=== PATIENT | female | born 1960 | race Caucasian/White ===

== ENCOUNTER 2023-04-24 11:22 | Emergency (ER) | payer MEDICARE, SELFPAY ==
[2023-04-24 11:35] VITALS: BP 147/84; PULSE 87; RESP 20; O2SAT 97; BMI 32.8
--- NOTE | 2023-04-24 11:41 | XRR_ITS ---
PROCEDURE INFORMATION: Exam: XR Lumbosacral Spine Exam date and time: 04/24/2023 12:21 PM Age: 62 years old Clinical indication: Low back pain; Additional info: Upper low back pain TECHNIQUE: Imaging protocol: Radiologic exam of the lumbosacral spine. Views: 2 or 3 views. COMPARISON: No relevant prior studies available. FINDINGS: Bones/joints: Lower thoracic/upper lumbar levoscoliosis measured from T11 through L4 of 12 degrees. There are degenerative changes throughout the visualized spine including marginal osteophyte formations, endplate degenerative changes, and facet arthropathy. Multilevel disc space narrowing. Soft tissues: Unremarkable. Gastrointestinal tract: Colonic constipation is present. XR/XR lumbar spine 2-3V* [id number] IMPRESSION: 1. Lower thoracic/upper lumbar levoscoliosis of 12 degrees. 2. There are degenerative changes as described above. No evidence for acute fracture. 3. Colonic constipation is present.
--- NOTE | 2023-04-24 11:41 | XRR_ITS ---
PROCEDURE INFORMATION: Exam: XR Thoracic Spine Exam date and time: 04/24/2023 12:21 PM Age: 62 years old Clinical indication: Pain in thoracic spine; Additional info: Lower thoracic back pain TECHNIQUE: Imaging protocol: Radiologic exam of the thoracic spine. Views: 3 views. COMPARISON: No relevant prior studies available. FINDINGS: Bones/joints: 11 degree thoracic dextroscoliosis. Multilevel small thoracic marginal osteophyte formations. Multilevel thoracic endplate degenerative changes and facet arthropathy. Soft tissues: Unremarkable. XR/XR thoracic spine 3V* [id number] IMPRESSION: 1. There are degenerative changes in the thoracic spine as described above. 2. 11 degree thoracic dextroscoliosis.
[2023-04-24 11:50] LABS: Add Urine Microscopic? NO; Charge for UA Resulting for Rev
[2023-04-24] MEDS: orphenadrine 30 mg/mL Inj 2 mL 60 MG IM (11:58)
[2023-04-24] MEDS: ketorolac 30 mg/mL INJ IM (12:00)
[2023-04-24 12:09] LABS: Urine Appearance Clear (CLEAR); Urine Color Yellow (Yellow); pH Urine 6 (5-7)
[2023-04-24 12:10] LABS: Bilirubin Urine Neg (Negative); Blood Urine Neg (Negative); Glucose Urine UA Norm (Normal); Ketones Urine Negative (Negative); Leukocyte Esterase Urine Negative (Negative); Nitrate Urine Negative (Negative); Protein Urine Neg (Negative); Urobilinogen Urine Norm (Negative)
--- NOTE | 2023-04-24 12:14 | ED_ITS ---
HPI - Back Pain/Injury General: Chief Complaint: Back Pain/Injury Stated Complaint: Lower back pain Time Seen by Provider: 04/24/23 11:23 Source: patient Mode of arrival: wheelchair Limitations: no limitations History of Present Illness: 62-year-old female presents to the ER today for complaints of right mid to low back pain for the last several days. Patient reports she is here from [place]. Patient reports the pain radiates both into her tailbone and also into her right side. Patient reports a history of back issues but this feels different. She reports chronic kidney disease stage III. Denies any pain with urination, changes in urinary frequency, or blood in her urine. Denies any recent injury. Denies any recent illness. Patient reports she smoked something this morning to help the pain but otherwise has only taken Tylenol. Patient denies any neurological deficits. Denies any loss of bowel or bladder control. Review of Systems General: Reports: 10 or more systems reviewed and unremarkable except in HPI and below Physical Exam Const: COMMON NORMALS: average body habitus, patient oriented x3, no limitations, alert and well nourished OTHER: Patient sitting in wheelchair in room. Appears to have some discomfort with movement. Neck/C-Spine: COMMON NORMALS: full ROM and no lymphadenopathy Resp: COMMON NORMALS: normal respiratory effort EFFORT & INSPECTION: Yes able to speak in complete sentences Cardio: COMMON NORMALS: regular rate and regular rhythm RATE: regular rate RHYTHM: regular rhythm : COMMON NORMALS: Yes no CVA tenderness BLADDER/KIDNEY EXAM: Yes no CVA tenderness Back/Pelvis: COMMON NORMALS: no CVA tenderness and thoracic and lumbar spine normal to inspection; negative for no thoracic nor lumbar tenderness (Mildly tender along the lower th oracic and upper lumbar vertebral processes) OTHER: Some tenderness along the paraspinal muscles of the lower thoracic and upper lumbar spine. Worse on the right than the left. Extremity: COMMON NORMALS: normal to inspection, full ROM and no pedal edema Neuro: COMMON NORMALS: patient oriented x3 SENSORIUM/ORIENTATION: Yes alert Psych: COMMON NORMALS: mental status grossly normal, Normal thought process present and cooperative THOUGHT PROCESS: Normal thought process present Skin: COMMON NORMALS: no rashes or lesions noted and no wounds GENERAL SKIN EXAM: no rashes or lesions noted Course ED course: Patient presents for mid to low back pain for the last several days. She does have a history of some low back issues in addition to chronic kidney disease. B ased on history and physical exam, unlikely related to chronic kidney disease. We will get a UA but patient has no urinary symptoms. We will get images of the thoracic and lumbar spine at this time. This appears to be more paraspinal muscle related. Patient given Toradol and orphenadrine for symptoms here as she requested something for pain. Vital Signs: Vital signs: Vital Signs Pulse Rate 76 04/24/23 12:34 Respiratory Rate 20 H 04/24/23 11:35 Blood Pressure 152/107 04/24/23 12:34 Pulse Oximetry 98 04/24/23 12:34 Oxygen Delivery Me thod Room Air 04/24/23 11:35 MDM - Back Pain/Injury Medical Decision Making UA is normal, no signs of blood or concerns for kidney issues or bladder issues. Imaging indicates levoscoliosis and dextroscoliosis which is a chronic issue. Likely some exacerbating degenerative changes causing patient's pain. We discussed findings. Recommended a steroid and muscle relaxer at this time. Stretching and core exercises also recommended. If pain not improved in 2 to 3 weeks, recommend follow-up with PCP. Warm, moist heat recommended. Topical muscle rub recommended. Return to the ER with any new or worsening symptoms. Patient verbalized understanding and was in agreement with the treatment plan. Labs Radiology Impressions Lumbar Spine X-Ray 04/24/23 11:41 IMPRESSION: 1. Lower thoracic/upper lumbar levoscoliosis of 12 degrees. 2. There are degenerative changes as described above. No evidence for acute fracture. 3. Colonic constipation is present. Thoracic Spine X-Ray 04/24/23 11:41 IMPRESSION: 1. There are degenerative changes in the thoracic spine as described above. 2. 11 degree thoracic dextroscoliosis. Laboratory Results Urine Color Yellow (Yellow) 04/24/23 11:46 Urine Appearance Clear (CLEAR) 04/24/23 11:46 Urine pH 6 (5-7) 04/24/23 11:46 Ur Specific [place] 1.010 (1.005-1.030) 04/24/23 11:46 Urine Protein Neg (Negative) 04/24/23 11:46 Urine Glucose (UA) Norm (Normal) 04/24/23 11:46 Urine Ketones Negative (Negative) 04/24/23 11:46 Urine Blood Neg (Negative) 04/24/23 11:46 Urine Nitrate Negative (Negative) 04/24/23 11:46 Urine Bilirubin Neg (Negative) 04/24/23 11:46 Urine Urobilinogen Norm mg/dL (Negative) 04/24/23 11:46 Ur Leukocyte Esterase Negative (Negative) 04/24/23 11:46 Critical Care Time Critical Care Time: Critical Care Time: No Discharge Plan Discharge Patient Disposition: Home Clinical Impression: Acute exacerbation of chronic low back pain Scoliosis deformity of spine Qualifiers: Scoliosis type: unspecified scoliosis Spinal region: lumbar Qualified Code(s): M41.9 - Scoliosis, unspecified Condition: Stable Prescriptions: New methocarbamol 750 mg tablet 750 mg PO Q8H Qty: 21 0RF Medrol (Kavon) 4 mg tablets,dose pack See Rx Instructions .ROUTE .COMPLEX Qty: 21 0RF Rx Instructions: orally per package directions No Action losartan 50 mg tablet 50 mg PO DAILY hydroxyzine HCl 50 mg tablet 50 mg PO QPM PRN (Reason: Sleep) Aspir-81 81 mg Tablet,Delayed Release (Dr/Ec) 81 mg PO DAILY Tylenol Ex Str Rapid Release 500 mg Tablet 1,000 mg PO Q6H PRN (Reason: Pain) lansoprazole 30 mg capsule,delayed release(DR/EC) 30 mg PO DAILY Nitrostat 0.4 mg Tablet, Sublingual 0.4 mg SUBLINGUAL Q5M PRN (Reason: Chest Pain) Rx Instructions: do not exceed 3 doses per episode Discharge Orders: Discharge ED (Routine); Ordered 04/24/23 Ordered By: Isabel Mathis Discharge Diet: Usual diet Discharge Activity: Increase activity as tolerated Patient Instructions: Opioid Safety, Pain Management Activity Restrictions/Additional Instructions: Take medications as prescribed. Warm, moist heat recommended. Topical muscle rub recommended. Stretching and low back exercises for strengthening your core recommended. Okay to take Tylenol and ibuprofen in moderation. Follow-up with PCP in 2 to 3 weeks if no improvement. Return to the ER with any new or worsening symptoms. Coding Level of Care Code ED Senior Teller for Beni Valerio
[2023-04-24 12:34] VITALS: BP 152/107; PULSE 76; O2SAT 98
[2023-04-24 13:24] VITALS: BP 152/107; PULSE 76; O2SAT 98
--- NOTE | 2023-04-27 09:42 | DCPLANNER ---
client support manager was triggered to call patient due to no primary care physician - patient does not live in the area.
== END 2023-04-24 13:25 | disposition home or self-care (01) ==
PROVIDERS: Emergency Provider Physician Assistant
DX: G89.29 Other chronic pain (principal); M54.50 Low back pain, unspecified; M41.9 Scoliosis, unspecified; Z79.82 Long term (current) use of aspirin
CPT/HCPCS: 72072; 72100; 81003; 96372; 99284; J1885; J2360

== ENCOUNTER 2023-05-14 20:24 | Emergency (ER) | payer MEDICARE, SELFPAY ==
[2023-05-14 20:30] VITALS: BP 105/64; PULSE 76; RESP 18; TEMP 36.4; O2SAT 100; BMI 33.6
--- NOTE | 2023-05-14 20:39 | XRR_ITS ---
PROCEDURE INFORMATION: Exam: XR Chest Exam date and time: 05/14/2023 8:44 PM Age: 62 years old Clinical indication: Pain; Chest pressure; Additional info: Chest pain TECHNIQUE: Imaging protocol: Radiologic exam of the chest. Views: 1 view. COMPARISON: CR (CHEST, ) 04/24/2023 12:21 PM FINDINGS: Lungs: Unremarkable. No consolidation. Pleural spaces: Unremarkable. No pleural effusion. No pneumothorax. Heart/Mediastinum: Cardiomegaly. Bones/joints: Unremarkable. XR/XR chest 1V portable [id number] IMPRESSION: Cardiomegaly, negative for infiltrate.
--- NOTE | 2023-05-14 20:40 | ECG_ITS ---
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 Measurements Intervals [place] Rate: 67 P: 42 MS: 145 QRS: 63 QRSD: 91 T: 78 QT: 423 QTc: 447 Interpretive Statements SINUS RHYTHM No previous ECG available for comparison Electronically Signed On 05-15-2023 11:29:38 CDT by Papi Solomon M.D. [id number]
--- NOTE | 2023-05-14 20:43 | ED_ITS ---
Documented by User: Alejandro Hoyos DO 05/14/23 22:43 HPI - Chest Pain General: Chief Complaint: Chest Pain Stated Complaint: chest pain Time Seen by Provider: 05/14/23 20:39 History of Present Illness: Presents to the ER with complaints of having chest pain that started about an hour 45 minutes ago. Patient is not currently having chest pain now. Patient does have a history of having 2 stents her last stent being placed in about 2007. Patient says she is now having nausea but is now chest pain-free. Patient states he is having a hard time breathing but satting 100% on room air. Review of Systems General: Reports: 10 or more systems reviewed and unremarkable except in HPI and below Physical Exam Const: COMMON NORMALS: no acute distress, average body habitus, patient oriented x3, no limitations, healthy appearing, alert and well nourished HENMT: COMMON NORMALS: normocephalic, atraumatic, hearing grossly normal bilaterally, external ears normal, Normal external nose present and moist oral mucous membranes HEAD & SCALP: normocephalic and atraumatic NOSE: Normal external nose present EXTERNAL EAR: Yes external ears normal Eye: COMMON NORMALS: Equal, round and reactive pupils present, EOMs intact bilaterally, conjunctivae normal and no scleral icterus CONJUNCTIVA: Yes conjunctivae normal PUPIL: Yes Equal, round and reactive pupils present Neck/C-Spine: COMMON NORMALS: full ROM, no lymphadenopathy, supple, no meningeal signs, no JVD and Thyroid normal THYROID: Thyroid normal Chest: COMMONS NORMALS: normal inspection of the chest and normal palpation of entire chest wall Resp: COMMON NORMALS: normal respiratory effort, No retractions, No use of accessory muscles and clear to auscultation bilaterally AUSCULTATION: clear to auscultation bilaterally Cardio: COMMON NORMALS: no JVD, regular rate, regular rhythm, S1 normal heart sound present, S2 normal heart sound present, No gallops present (Cardio), No clicks present (Cardio), No murmurs present (Cardio) and No rub (Cardio) RATE: regular rate RHYTHM: regular rhythm HEART SOUNDS: S1 normal heart sound present and S2 normal heart sound present GI: COMMON NORMALS: Normal to inspection, nondistended, normoactive bowel sounds present, Soft to palpation, non-tender, No hepatosplenomegaly present and no masses PALPATION: Yes Soft to palpation and Yes No hepatosplenomegaly present : COMMON NORMALS: Yes no CVA tenderness BLADDER/KIDNEY EXAM: Yes no CVA tenderness Back/Pelvis: COMMON NORMALS: no CVA tenderness Neuro: COMMON NORMALS: patient oriented x3 SENSORIUM/ORIENTATION: Yes alert MENINGEAL SIGNS: Yes no meningeal signs Course 2 Vital Signs: Vital signs: Vital Signs Temperature 97.6 F 05/14/23 20:30 Pulse Rate 81 05/14/23 22:30 Respiratory Rate 16 05/14/23 22:30 Blood Pressure 114/62 05/14/23 22:30 Pulse Oximetry 96 05/14/23 22:30 Oxygen Delivery Me thod Room Air 05/14/23 22:30 MDM - Chest Pain Differential Diagnosis Unlikely acute massive pulmonary embolism, acute respiratory failure, acute myocardial infarction, cardiac arrest or sudden cardiac Medical Records I reviewed the patient's medical records. Lab Data I reviewed the patient's lab results. 05/14/23 21:01 05/14/23 21:01 Radiology Impressions Chest X-Ray 05/14/23 20:39 IMPRESSION: Cardiomegaly, negative for infiltrate. Laboratory Results WBC 12.7 10^3/uL (4.0-10.0) H 05/14/23 21:01 RBC 4.83 10^6/uL (4.1-5.3) 05/14/23 21:01 Hgb 13.1 g/dL (11.5-15.3) 05/14/23 21:01 Hct 42.7 % (37.0-47.0) 05/14/23 21:01 MCV 88.4 fl (81-99) 05/14/23 21:01 MCH 27.1 pg (28.0-34.0) L 05/14/23 21:01 MCHC 30.7 g/dL (30.0-36.0) 05/14/23 21:01 RDW 14.7 % (12.1-15.1) 05/14/23 21:01 Plt Count 284 10^3/cmm (130-400) 05/14/23 21:01 MPV 9.6 fL (7.4-10.4) 05/14/23 21:01 Neut % (Auto) 62.3 % 05/14/23 21:01 Lymph % (Auto) 29.5 % 05/14/23 21:01 Beckham % (Auto) 6.4 % 05/14/23 21:01 Eos % (Auto) 0.9 % 05/14/23 21:01 Baso % (Auto) 0.4 % 05/14/23 21:01 Neut # (Auto) 7.91 10^3/uL (1.8-7.7) H 05/14/23 21:01 Lymph # (Auto) 3.7 10^3/uL (0.8-4.8) 05/14/23 21:01 Beckham # (Auto) 0.8 10^3/uL (0.2-0.9) 05/14/23 21:01 Eos # (Auto) 0.1 10^3/uL (0.0-0.8) 05/14/23 21:01 Baso # (Auto) 0.1 10^3/uL (0.0-0.1) 05/14/23 21:01 Nucleated RBC % (auto) 0 % 05/14/23 21:01 Nucleated RBCs # 0.0 /100WBC 05/14/23 21:01 Sodium 139 mmol/L (136-145) 05/14/23 21:01 Potassium 3.7 mmol/L (3.5-5.1) 05/14/23 21: Chloride 101 mmol/L (98-107) 05/14/23 21:01 Carbon Dioxide 25 mmol/L (22-29) 05/14/23 21:01 Anion Gap 16.7 (5-19) 05/14/23 21: BUN 26 mg/dL (8-23) H 05/14/23 21:01 Creatinine 2.0 mg/dL (0.5-0.9) H 05/14/23 21:01 GFR Calculation 25.1 mL/min (90-130) L 05/14/23 21:01 Glucose 138 mg/dL (65-115) H 05/14/23 21: Calculated Osmolality 295 mOsm/kg (285-295) 05/14/23 21:01 Calcium 9.4 mg/dL (8.5-10.5) 05/14/23 21:01 Total Bilirubin 0.2 mg/dL (0.15-1.2) 05/14/23 21:01 AST 11 U/L (0-32) 05/14/23 21:01 ALT 11 U/L (0-33) 05/14/23 21:01 Alkaline Phosphatase 101 U/L (35-105) 05/14/23 21:01 Troponin T Baseline 10 ng/L (0-10) 05/14/23 21:01 Troponin T 120 Minute 9.14 ng/L (0-10) 05/14/23 22:39 Delta Troponin T -0.86 ABS# (0-10) L 05/14/23 22:39 Total Protein 6.9 g/dL (6.6-8.7) 05/14/23 21:01 Albumin 3.7 g/dL (3.5-5.2) 05/14/23 21: Globulin 3.2 g/dL (1.3-4.6) 05/14/23 21:01 EKG Data EKG 1: I personally reviewed and interpreted this EKG as follows: EKG interpretation date: 05/14/23 EKG interpretation time: 22:39 Prior EKG tracings: not available for review Interpretation: EKG showed normal sinus rhythm, ventricular rate 67 bpm, NJ interval 145, QRS duration 91, QTc 438, no ST-T wave changes Discharge Plan Discharge Patient Disposition: Home Clinical Impression: Chest pain Condition: Stable Prescriptions: No Action losartan 50 mg tablet 50 mg PO DAILY hydroxyzine HCl 50 mg tablet 50 mg PO QPM PRN (Reason: Sleep) Aspir-81 81 mg Tablet,Delayed Release (Dr/Ec) 81 mg PO DAILY Tylenol Ex Str Rapid Release 500 mg Tablet 1,000 mg PO Q6H PRN (Reason: Pain) lansoprazole 30 mg capsule,delayed release(DR/EC) 30 mg PO DAILY Nitrostat 0.4 mg Tablet, Sublingual 0.4 mg SUBLINGUAL Q5M PRN (Reason: Chest Pain) Rx Instructions: do not exceed 3 doses per episode methocarbamol 750 mg tablet 750 mg PO Q8H Qty: 21 0RF Medrol (Kavon) 4 mg tablets,dose pack See Rx Instructions .ROUTE .COMPLEX Qty: 21 0RF Rx Instructions: orally per package directions Discharge Orders: Discharge ED (Routine); Ordered 05/14/23 Ordered By: Eliana Diallo Discharge Diet: Advance as tolerated Discharge Activity: Resume usual activity Patient Instructions: Chest Pain (ED) Coding Level of Care Code ED Hydrate Thickener Operator for Chg Fwd Documented by User: Eliana Diallo MD 05/14/23 23:49 HPI - Chest Pain General: Chief Complaint: Chest Pain Stated Complaint: chest pain Time Seen by Provider: 05/14/23 20:39 Course Vital Signs: Vital signs: Vital Signs Temperature 97.6 F 05/14/23 20:30 Pulse Rate 81 05/14/23 22:30 Respiratory Rate 16 05/14/23 22:30 Blood Pressure 114/62 05/14/23 22:30 Pulse Oximetry 96 05/14/23 22:30 Oxygen Delivery Me thod Room Air 05/14/23 22:30 MDM - Chest Pain Medical Decision Making Patient presents here with chest pain atypical in nature troponins here are negative patient is well-appearing here patient stable for discharge she is follow-up PCP and return if worsening. Lab Data 05/14/23 21:01 05/14/23 21:01 Radiology Impressions Chest X-Ray 05/14/23 20:39 IMPRESSION: Cardiomegaly, negative for infiltrate. Laboratory Results WBC 12.7 10^3/uL (4.0-10.0) H 05/14/23 21:01 RBC 4.83 10^6/uL (4.1-5.3) 05/14/23 21:01 Hgb 13.1 g/dL (11.5-15.3) 05/14/23 21:01 Hct 42.7 % (37.0-47.0) 05/14/23 21:01 MCV 88.4 fl (81-99) 05/14/23 21:01 MCH 27.1 pg (28.0-34.0) L 05/14/23 21:01 MCHC 30.7 g/dL (30.0-36.0) 05/14/23 21:01 RDW 14.7 % (12.1-15.1) 05/14/23 21:01 Plt Count 284 10^3/cmm (130-400) 05/14/23 21:01 MPV 9.6 fL (7.4-10.4) 05/14/23 21:01 Neut % (Auto) 62.3 % 05/14/23 21:01 Lymph % (Auto) 29.5 % 05/14/23 21:01 Beckham % (Auto) 6.4 % 05/14/23 21:01 Eos % (Auto) 0.9 % 05/14/23 21:01 Baso % (Auto) 0.4 % 05/14/23 21:01 Neut # (Auto) 7.91 10^3/uL (1.8-7.7) H 05/14/23 21:01 Lymph # (Auto) 3.7 10^3/uL (0.8-4.8) 05/14/23 21:01 Beckham # (Auto) 0.8 10^3/uL (0.2-0.9) 05/14/23 21:01 Eos # (Auto) 0.1 10^3/uL (0.0-0.8) 05/14/23 21:01 Baso # (Auto) 0.1 10^3/uL (0.0-0.1) 05/14/23 21:01 Nucleated RBC % (auto) 0 % 05/14/23 21: Nucleated RBCs # 0.0 /100WBC 05/14/23 21:01 Sodium 139 mmol/L (136-145) 05/14/23 21:01 Potassium 3.7 mmol/L (3.5-5.1) 05/14/23 21:01 Chloride 101 mmol/L (98-107) 05/14/23 21:01 Carbon Dioxide 25 mmol/L (22-29) 05/14/23 21:01 Anion Gap 16.7 (5-19) 05/14/23 21:01 BUN 26 mg/dL (8-23) H 05/14/23 21:01 Creatinine 2.0 mg/dL (0.5-0.9) H 05/14/23 21:01 GFR Calculation 25.1 mL/min (90-130) L 05/14/23 21:01 Glucose 138 mg/dL (65-115) H 05/14/23 21:01 Calculated Osmolality 295 mOsm/kg (285-295) 05/14/23 21:01 Calcium 9.4 mg/dL (8.5-10.5) 05/14/23 21:01 Total Bilirubin 0.2 mg/dL (0.15-1.2) 05/14/23 21:01 AST 11 U/L (0-32) 05/14/23 21:01 ALT 11 U/L (0-33) 05/14/23 21:01 Alkaline Phosphatase 101 U/L (35-105) 05/14/23 21:01 Troponin T Baseline 10 ng/L (0-10) 05/14/23 21:01 Troponin T 120 Minute 9.14 ng/L (0-10) 05/14/23 22:39 Delta Troponin T -0.86 ABS# (0-10) L 05/14/23 22:39 Total Protein 6.9 g/dL (6.6-8.7) 05/14/23 21:01 Albumin 3.7 g/dL (3.5-5.2) 05/14/23 21:01 Globulin 3.2 g/dL (1.3-4.6) 05/14/23 21:01 Discharge Plan Discharge Patient Disposition: Home Clinical Impression: Chest pain Condition: Stable Prescriptions: No Action losartan 50 mg tablet 50 mg PO DAILY hydroxyzine HCl 50 mg tablet 50 mg PO QPM PRN (Reason: Sleep) Aspir-81 81 mg Tablet,Delayed Release (Dr/Ec) 81 mg PO DAILY Tylenol Ex Str Rapid Release 500 mg Tablet 1,000 mg PO Q6H PRN (Reason: Pain) lansoprazole 30 mg capsule,delayed release(DR/EC) 30 mg PO DAILY Nitrostat 0.4 mg Tablet, Sublingual 0.4 mg SUBLINGUAL Q5M PRN (Reason: Chest Pain) Rx Instructions: do not exceed 3 doses per episode methocarbamol 750 mg tablet 750 mg PO Q8H Qty: 21 0RF Medrol (Kavon) 4 mg tablets,dose pack See Rx Instructions .ROUTE .COMPLEX Qty: 21 0RF Rx Instructions: orally per package directions Discharge Orders: Discharge ED (Routine); Ordered 05/14/23 Ordered By: Eliana Diallo Discharge Diet: Advance as tolerated Discharge Activity: Resume usual activity Patient Instructions: Chest Pain (ED) Coding Level of Care Code ED Hydrate Thickener Operator for Beni Valerio
[2023-05-14 20:48] VITALS: BP 97/62; PULSE 73; RESP 18; O2SAT 97
[2023-05-14 21:09] LABS: Basophils # 0.1 10^3/uL (0.0-0.1); Basophils % 0.4 %; Eosinophils # 0.1 10^3/uL (0.0-0.8); Eosinophils % 0.9 %; Hematocrit 42.7 % (37.0-47.0); Hemoglobin 13.1 g/dL (11.5-15.3); Lymphocytes # 3.7 10^3/uL (0.8-4.8); Lymphocytes % 29.5 %; Mean Corpuscular HGB Conc 30.7 g/dL (30.0-36.0); Mean Corpuscular Hemoglobin 27.1 pg (28.0-34.0); Mean Corpuscular Volume 88.4 fl (81-99); Mean Platelet Volume 9.6 fL (7.4-10.4); Monocytes # 0.8 10^3/uL (0.2-0.9); Monocytes % 6.4 %; Neutrophils # 7.91 10^3/uL (1.8-7.7); Neutrophils % 62.3 %; Nucleated Red Blood Cells % 0 %; Platelet Count 284 10^3/cmm (130-400); Red Blood Count 4.83 10^6/uL (4.1-5.3); Red Cell Distribution Width 14.7 % (12.1-15.1); White Blood Count 12.7 10^3/uL (4.0-10.0)
[2023-05-14 21:50] LABS: Alanine Aminotransferase 11 U/L (0-33); Albumin Level 3.7 g/dL (3.5-5.2); Alkaline Phosphatase 101 U/L (35-105); Anion Gap 16.7 (5-19); Aspartate Amino Transferase 11 U/L (0-32); Blood Urea Nitrogen 26 mg/dL (8-23); Calcium 9.4 mg/dL (8.5-10.5); Carbon Dioxide 25 mmol/L (22-29); Chloride 101 mmol/L (98-107); Globulin 3.2 g/dL (1.3-4.6); Glomerular Filtration Rate 25.1 mL/min (90-130); Glucose 138 mg/dL (65-115); Osmolality Calculated 295 mOsm/kg (285-295); Potassium 3.7 mmol/L (3.5-5.1); Sodium 139 mmol/L (136-145); Total Bilirubin 0.2 mg/dL (0.15-1.2); Total Protein 6.9 g/dL (6.6-8.7)
[2023-05-14 21:51] LABS: Troponin(5th) Baseline 10 ng/L (0-10)
[2023-05-14 22:30] VITALS: BP 114/62; PULSE 81; RESP 16; O2SAT 96
[2023-05-14 23:04] LABS: Troponin 5 2HR 9.14 ng/L (0-10); Troponin 5 2HR Delta -0.86 ABS# (0-10)
== END 2023-05-14 23:54 | disposition home or self-care (01) ==
PROVIDERS: Emergency Medicine; Emergency Provider Emergency Medicine
DX: R07.9 Chest pain, unspecified (principal); Z79.82 Long term (current) use of aspirin
CPT/HCPCS: 71045; 80053; 84484; 85025; 93005; 99285